=== PATIENT | male | born 1975 | race Caucasian/White ===

== ENCOUNTER 2017-01-20 19:54 | Emergency (ER) | payer SELFPAY ==
[2017-01-20 22:58] VITALS: BP 141/86
== END 2017-01-20 22:58 | disposition home or self-care (01) ==
LOC: ED 19:54
DX: S93.401A Sprain of unspecified ligament of right ankle, initial encounter (principal); X58.XXXA Exposure to other specified factors, initial encounter; Y93.89 Activity, other specified; Y99.8 Other external cause status; Y92.89 Other specified places as the place of occurrence of the external cause